=== PATIENT | male | born 1940 | race Caucasian/White ===

== ENCOUNTER 2021-01-03 12:36 | Outpatient (CLI) | payer MEDICARE, OTHER ==
--- NOTE | 2021-01-03 15:41 | XRAY Report ---
PROCEDURE: Elbow 3 View LT INDICATIONS: CONTUSION OF LEFT ELBOW TECHNIQUE: 3 views of the elbow were acquired. COMPARISON: None FINDINGS: Bones: On one image, there is a potential, minimal displaced radial head fracture. A remote appearing also fracture can be seen posterior to the olecranon. No suspicious bony lesions. Soft tissues: There is a mild elbow joint effusion. No suspicious soft tissue calcifications. IMPRESSION: Potential minimally displaced radial head fracture. Please correlate with focal tenderne ss. Mild elbow joint effusion. Please consider a follow-up elbow CT for further evaluation. Reviewed by: Gareth Hancock MD on 01/03/2021 2:39 PM JUANITA Approved by: Gareth Hancock MD on 01/03/2021 2:39 PM JUANITA Station ID: [id number]
== END 2021-01-03 12:37 | disposition home or self-care (01) ==
LOC: DI.S 12:36
PROVIDERS: ATTEND Emergency Medicine
DX: M25.422 Effusion, left elbow (principal); R93.6 Abnormal findings on diagnostic imaging of limbs